=== PATIENT | male | born 1995 | race Caucasian/White ===

== ENCOUNTER 2016-09-26 22:53 | Emergency (ER) | payer OTHER ==
[~2016-09-26] VITALS: Ht 182.9 cm; Wt 81.8 kg
[2016-09-26 22:55] VITALS: BP 165/94; TEMP 98.8
[2016-09-26] MEDS ORDERED: TYLENOL W/COD1 UDTAB PO (23:52)
[2016-09-27 00:14] VITALS: PULSE 118
[2016-09-28] MEDS ORDERED: TYLENOL W/COD1 UDTAB PO (11:46)
[2016-09-28] MEDS ORDERED: NORCO 325 MG-7.1 TAB PO (14:13)
== END 2016-09-27 00:14 | disposition home or self-care (01) ==
LOC: COL.ER 22:53
DX: S62.394A Other fracture of fourth metacarpal bone, right hand, initial encounter for closed fracture (principal); S60.511A Abrasion of right hand, initial encounter; W22.8XXA Striking against or struck by other objects, initial encounter

== ENCOUNTER 2016-09-28 10:59 | Day surgery (SDC) | payer OTHER ==
[~2016-09-28] VITALS: Ht 182.9 cm; Wt 79.2 kg
[~2016-09-28 10:59] MED LIST: TYLENOL W/COD1 UDTAB PO
[2016-09-28 11:31] VITALS: BP 148/88; PULSE 82; TEMP 98.1
[2016-09-28] MEDS ORDERED: TYLENOL W/COD1 UDTAB PO (11:46)
[2016-09-28 13:27] VITALS: BP 95/39; PULSE 71
[2016-09-28 13:30] VITALS: BP 101/52; PULSE 77
[2016-09-28 13:45] VITALS: BP 97/48; PULSE 61
[2016-09-28 14:00] VITALS: BP 113/64; PULSE 73
[2016-09-28] MEDS ORDERED: NORCO 325 MG-7.1 TAB PO (14:13)
== END 2016-09-28 14:38 | disposition home or self-care (01) ==
LOC: SDCO 10:59
DX: S62.324A Displaced fracture of shaft of fourth metacarpal bone, right hand, initial encounter for closed fracture (principal); S63.051A Subluxation of other carpometacarpal joint of right hand, initial encounter; S63.054A Dislocation of other carpometacarpal joint of right hand, initial encounter
CPT/HCPCS: J0690; J1100; J2250; J2310; J2704; J3010; J7120